=== PATIENT | male | born 1940 | race Caucasian/White ===

== ENCOUNTER 2022-12-30 13:34 | Outpatient (AMB) | payer OTHER, SELFPAY ==
--- NOTE | 2022-12-30 13:37 | HO.NEPHOV_ITS ---
HPI HPI Comments History of Present Illness Details I had the privilege of seeing Khoa in follow-up of his chronic kidney disease. He has had heart failure with reduced ejection fraction in the past along with low-flow state from aortic stenosis causing Kg I needing dialysis. His renal functions had recovered. He underwent TAVR. He does not have any weight gain, shortness of breath, edema, paroxysmal nocturnal dyspnea, orthopnea or syncope. He had a recent ECHO which showed mildly dilated left ventricle with normal LV thickness.Bioprosthetic valve in the aortic position TAVR .Mean gradient is 10 mmHg. Right ventricular systolic function is reduced. A pacer/ICD wire is seen in the right ventricle. His recent serum creatinine is 2. Blood sugars are well controlled. He avoids nonsteroidal anti-inflammatory medications. He has not had any new medications lately. He weighs himself every day. He is far up closely by his elastic attacher coverstitch Dr. Coker with whom he has an appointment in a month. [facility] Medical History (Updated 12/30/22 @ 14:59 by Janusz Davis MD) Anemia Type 2 diabetes mellitus Surgical History (Updated 12/30/22 @ 13:47 by Phoebe Rader MA) S/P TAVR (transcatheter aortic valve replacement) Social History (Updated 12/30/22 @ 13:48 by Pohebe Rader MA) Alcohol intake: former Patient Tobacco Use Status: Former Tobacco user Vital Signs 12/30/22 13:49 Height 6 ft Weight 240 lb 8 oz BMI 32.6 BP 124/70 Blood Pressure Location Lt brachial Position Sitting Pulse 80 Pulse Source Pulse Oximeter Pulse Oximetry (%) 96 Physical Exam Vital Signs: Last Vital Signs Pulse 80 12/30/22 13:49 BP 124/70 12/30/22 13:49 Pulse Ox 96 12/30/22 13:49 BMI result Body Mass Index 32.6 Const General: comfortable and no acute distress Orientation/consciousness: patient oriented x3 HEENT Head: Yes normocephalic Mouth: Normal oral and palatal mucosa present Eyes EOM: EOMs intact bilaterally Neck Neck: Yes supple Resp Auscultation: clear to auscultation bilaterally Cardio Jugular venous distension: no JVD Rate: regular rate Heart sounds: Murmur heart sound present GI Palpation (GI): Soft to palpation Auscultation: normal bowel sounds General: Yes no CVA tenderness Back/Spine/Pelvis Back: no CVA tenderness Skin General skin exam: no rashes or lesions noted Neuro General: patient oriented x3 and moves all extremities Extrem General: Yes no pedal edema Assessment & Plan Assessment & Plan (1) CKD (chronic kidney disease) stage 3, GFR 30-59 ml/min: Code(s): N18.30 - Chronic kidney disease, stage 3 unspecified Qualifiers: Chronic kidney disease stage 3 subtype: stage 3b (GFR 30-44) Qualified Code(s): N18.32 - Chronic kidney disease, stage 3b (2) Hypertension: Code(s): I10 - Essential (primary) hypertension Qualifiers: Hypertension type: primary hypertension Qualified Code(s): I10 - Essential (primary) hypertension (3) Cardiomyopathy: Code(s): I42.9 - Cardiomyopathy, unspecified Qualifiers: Cardiomyopathy type: ischemic Qualified Code(s): I25.5 - Ischemic cardiomyopathy Plan hKoa is an 82 year old male with PMH significant for hypertension, dyslipidemia, left parietal stroke 2010, diabetes mellitus type 2, CAD s/p CABG x 2, 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 His renal functions are pretty stable. His last serum creatinine is 2. Electrolytes are acceptable. Volume status is optimal on current dose of diuretics. I started him on Farxiga 2.5 mg once daily. He is going to have repeat blood work done in a month. His blood sugars are dropping he will reduce insulin. He is seeing his elastic attacher coverstitch Dr. Saloni Coker next month. If he is going to be initiated on Entresto, we need to follow his blood chemistry and kidney functions very closely. I did not make any other medications today. All questions answered. Blood work ordered. Time spent for retrieval of data, documentation and patient encounter 55 minutes. Orders: Orders Creatinine Today N18.30 - Chronic kidney disease, stage 3 unspecified Electrolytes Today N18.30 - Chronic kidney disease, stage 3 unspecified Blood Urea Nitrogen Today N18.30 - Chronic kidney disease, stage 3 unspecified Medications: New dapagliflozin propanediol (Farxiga) 2.5 mg (1/2 x 5 mg) PO DAILY 30 days 15 tabs 6RF Coding Level of Care Code Est Pt Level 5 (55968) Diagnoses Stage 3b chronic kidney disease N18.32 Chronic kidney disease stage 3 subtype: stage 3b (GFR 30-44) Primary hypertension I10 Hypertension type: primary hypertension Ischemic cardiomyopathy I25.5 Cardiomyopathy type: ischemic
[2022-12-30 13:49] VITALS: BP 124/70; PULSE 80; O2SAT 96; BMI 32.6
== END 2022-12-30 14:37 | disposition home or self-care (01) ==
PROVIDERS: Visit Provider Internal Medicine Nephrology
DX: N18.32 Chronic kidney disease, stage 3b (principal); I12.9 Hypertensive chronic kidney disease with stage 1 through stage 4 chronic kidney disease, or unspecified chronic kidney disease; I25.5 Ischemic cardiomyopathy
CPT/HCPCS: 99215

== ENCOUNTER → 2022-12-30 13:34 | Outpatient (BNVA) | payer OTHER, MEDICARE, SELFPAY | PROVIDERS: Visit Provider Internal Medicine Nephrology ==

== ENCOUNTER 2023-03-04 13:17 | Outpatient (AMB) | payer OTHER, MEDICARE, SELFPAY ==
[2023-03-04 13:18] VITALS: BP 130/62; PULSE 80; O2SAT 94; BMI 32.1
--- NOTE | 2023-03-04 13:18 | HO.NEPHOV_ITS ---
HPI HPI Comments History of Present Illness Details I had the privilege of seeing Khoa in follow-up of his chronic kidney disease. He has had heart failure with reduced ejection fraction in the past along with low-flow state from aortic stenosis causing Kg needing dialysis. His renal functions had recovered and is stable. He underwent TAVR. He does not have any weight gain, shortness of breath, edema, paroxysmal nocturnal dyspnea, orthopnea or syncope. He had a recent ECHO which showed mildly dilated left ventricle with normal LV thickness.Bioprosthetic valve in the aortic position TAVR .Mean gradient is 10 mmHg. Right ventricular systolic function is reduced. A pacer/ICD wire is seen in the right ventricle. His recent serum creatinine is 2.2. Blood sugars are well controlled. He avoids nonsteroidal anti-inflammatory medications. He has not had any new medications lately. He weighs himself every day. He is followed up closely by his prick stitcher Dr. Coker. 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) Social History Alcohol intake: former Patient Tobacco Use Status: Former Tobacco user Vital Signs 03/04/23 13:18 Height 6 ft Weight 237 lb BMI 32.1 BP 130/62 Blood Pressure Location Lt brachial Position Sitting Pulse 80 Pulse Oximetry (%) 94 Oxygen Delivery Method Room Air Physical Exam Vital Signs: Last Vital Signs Pulse 80 03/04/23 13:18 BP 130/62 03/04/23 13:18 Pulse Ox 94 03/04/23 13:18 Oxygen Delivery Method Room Air 03/04/23 13:18 BMI result Body Mass Index 32.1 Const General: comfortable and no acute distress Orientation/consciousness: patient oriented x3 HEENT Head: Yes normocephalic Mouth: Normal oral and palatal mucosa present Eyes EOM: EOMs intact bilaterally Neck Neck: Yes supple Resp Auscultation: clear to auscultation bilaterally Cardio Jugular venous distension: no JVD Rate: regular rate GI Palpation (GI): Soft to palpation Auscultation: normal bowel sounds General: Yes no CVA tenderness Back/Spine/Pelvis Back: no CVA tenderness Skin General skin exam: no rashes or lesions noted Neuro General: patient oriented x3 and moves all extremities Extrem General: Yes no pedal edema Assessment & Plan Assessment & Plan (1) CKD (chronic kidney disease) stage 3, GFR 30-59 ml/min: Code(s): N18.30 - Chronic kidney disease, stage 3 unspecified Qualifiers: Chronic kidney disease stage 3 subtype: stage 3b (GFR 30-44) Qualified Code(s): N18.32 - Chronic kidney disease, stage 3b (2) Hypertension: Code(s): I10 - Essential (primary) hypertension Qualifiers: Hypertension type: primary hypertension Qualified Code(s): I10 - Essential (primary) hypertension (3) Cardiomyopathy: Code(s): I42.9 - Cardiomyopathy, unspecified Qualifiers: Cardiomyopathy type: ischemic Qualified Code(s): I25.5 - Ischemic cardiomyopathy Plan Khoa is an 82 year old male with PMH significant for hypertension, dyslipidemia, left parietal stroke 2010, diabetes mellitus type 2, CAD s/p CABG x 2, 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 His renal functions are pretty stable. His last serum creatinine is 2.2. Electrolytes are acceptable. Volume status is optimal on current dose of diuretics. I started him on Farxiga 2.5 mg once daily at the last visit. He follows up with his prick stitcher Dr. Saloni Coker. If he is going to be initiated on Entresto, we need to follow his blood chemistry and kidney functions very closely. I did not make any other medications today. All questions answered. Blood work ordered. Orders: Orders Creatinine Today I10 - Essential (primary) hypertension, I42.9 - Cardiomyopathy, unspecified, N18.30 - Chronic kidney disease, stage 3 unspecified Electrolytes Today I10 - Essential (primary) hypertension, I42.9 - Cardiomyopathy, unspecified, N18.30 - Chronic kidney disease, stage 3 unspecified Blood Urea Nitrogen Today I10 - Essential (primary) hypertension, I42.9 - Cardiomyopathy, unspecified, N18.30 - Chronic kidney disease, stage 3 unspecified Medications: Changed From dapagliflozin propanediol (Farxiga) 2.5 mg (1/2 x 5 mg) PO DAILY 30 days 15 tabs 6RF To dapagliflozin propanediol (Farxiga) 2.5 mg (1/2 x 5 mg) PO DAILY 45 tabs 6RF 90 days Coding Level of Care Code Est Pt Level 4 (49602) Diagnoses Stage 3b chronic kidney disease N18.32 Chronic kidney disease stage 3 subtype: stage 3b (GFR 30-44) Primary hypertension I10 Hypertension type: primary hypertension Ischemic cardiomyopathy I25.5 Cardiomyopathy type: ischemic Results Reviewed Nephrology Results: No Data to Display
== END 2023-03-04 13:45 | disposition home or self-care (01) ==
PROVIDERS: PCP Internal Medicine; Visit Provider Internal Medicine Nephrology
DX: N18.32 Chronic kidney disease, stage 3b (principal); I10 Essential (primary) hypertension; I25.5 Ischemic cardiomyopathy
CPT/HCPCS: 99214

== ENCOUNTER → 2023-03-04 13:17 | Outpatient (BNVA) | payer OTHER, MEDICARE, SELFPAY | PROVIDERS: PCP Internal Medicine; Visit Provider Internal Medicine Nephrology ==

== ENCOUNTER 2023-05-28 12:56 | Outpatient (REF) | payer OTHER, MEDICARE, SELFPAY ==
[2023-05-28 16:52] LABS: PLT CLUMP 1; SCAN SMEAR FLAG 1
[2023-05-28 17:16] LABS: Basophils Absolute Auto 0.1 X10*3/uL (0.0-0.2); Basophils Percent Auto 0.8 % (0-2); Eosinophils Absolute Auto 0.2 X10*3/uL (0.0-0.4); Eosinophils Percent Auto 3.4 % (0-4); Hematocrit 45.5 % (42.0-52.0); Imm Gran Abs Auto 0.01 X10*3/uL (0.00-0.03); Imm Gran Pct Auto 0.2 % (0.0-0.4); Lymphocytes Absolute Auto 0.6 X10*3/uL (1.2-4.9); Lymphocytes Percent Auto 10.3 % (20-40); MANUAL DIFF FLAG NO; Mean Corpuscular Hemoglobin 29.4 pg (27.0-33.0); Mean Platelet Volume 10.5 fL (9.4-12.4); Monocytes Absolute Auto 0.7 X10*3/uL (0.1-1.2); Monocytes Percent Auto 10.7 % (2-11); Neutrophils Absolute Auto 4.6 x10*3/uL (2.0-8.3); Neutrophils Percent Auto 74.6 % (45-73); Platelet Count 122 X10*3/uL (160-400); Red Blood Count 5.11 X10*6/uL (4.60-5.80); White Blood Count 6.1 X10*3/uL (4.8-10.8)
[2023-05-28 17:21] LABS: Anion Gap 13 (12-20); Blood Urea Nitrogen 43 mg/dL (9-16); Calcium 8.6 mg/dL (8.4-10.2); Carbon Dioxide 33 mmol/L (22-29); Chloride 97 mmol/L (96-108); Estimated Glomerular Filt Rate 29; Sodium 139 mmol/L (135-145)
[2023-05-28 17:39] LABS: Vitamin D 25-OH Total 53.2 ng/mL (>30)
== END 2023-05-28 12:57 | disposition home or self-care (01) ==
LOC: HO.HKASLDS 12:56
PROVIDERS: Visit Provider Internal Medicine Nephrology
DX: N18.30 Chronic kidney disease, stage 3 unspecified (principal)
CPT/HCPCS: 36415; 80051; 82306; 82310; 82565; 84520; 85025

== ENCOUNTER 2023-06-03 13:24 | Outpatient (AMB) | payer OTHER, SELFPAY ==
--- NOTE | 2023-06-03 13:33 | HO.NEPHOV_ITS ---
HPI HPI Comments History of Present Illness Details I had the privilege of seeing Khoa in follow-up of his chronic kidney disease. He has had heart failure with reduced ejection fraction in the past along with low-flow state from aortic stenosis causing Kg needing dialysis. His renal functions had recovered and is stable. He underwent TAVR. He does not have any weight gain, shortness of breath, edema, paroxysmal nocturnal dyspnea, orthopnea or syncope. He had a recent ECHO which showed mildly dilated left ventricle with normal LV thickness.Bioprosthetic valve in the aortic position TAVR .Mean gradient is 10 mmHg. Right ventricular systolic function is reduced. A pacer/ICD wire is seen in the right ventricle. His recent serum creatinine is close to baseline. Blood sugars are well controlled. He avoids nonsteroidal anti-inflammatory medications. He has not had any new medications lately. He weighs himself every day. He is followed up closely by his product manager medical device Dr. Coker. 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) Social History Alcohol intake: former Patient Tobacco Use Status: Former Tobacco user Vital Signs 06/03/23 13:34 Height 6 ft Weight 242 lb BMI 32.8 BP 118/80 Blood Pressure Location Lt brachial Position Sitting Pulse 80 Pulse Source Pulse Oximeter Pulse Oximetry (%) 92 Oxygen Delivery Method Room Air Physical Exam Vital Signs: Last Vital Signs Pulse 80 06/03/23 13:34 BP 118/80 06/03/23 13:34 Pulse Ox 92 06/03/23 13:34 Oxygen Delivery Method Room Air 06/03/23 13:34 BMI result Body Mass Index 32.8 Const General: comfortable and no acute distress Orientation/consciousness: patient oriented x3 HEENT Head: Yes normocephalic Mouth: Normal oral and palatal mucosa present Eyes EOM: EOMs intact bilaterally Neck Neck: Yes supple Resp Auscultation: clear to auscultation bilaterally Cardio Jugular venous distension: no JVD Rate: regular rate GI Palpation (GI): Soft to palpation Auscultation: normal bowel sounds General: Yes no CVA tenderness Back/Spine/Pelvis Back: no CVA tenderness Skin General skin exam: no rashes or lesions noted Neuro General: patient oriented x3 and moves all extremities Extrem General: Yes no pedal edema Assessment & Plan Assessment & Plan (1) CKD (chronic kidney disease) stage 3, GFR 30-59 ml/min: Code(s): N18.30 - Chronic kidney disease, stage 3 unspecified Qualifiers: Chronic kidney disease stage 3 subtype: stage 3b (GFR 30-44) Qualified Code(s): N18.32 - Chronic kidney disease, stage 3b (2) Hypertension: Code(s): I10 - Essential (primary) hypertension Qualifiers: Hypertension type: primary hypertension Qualified Code(s): I10 - Essential (primary) hypertension (3) Cardiomyopathy: Code(s): I42.9 - Cardiomyopathy, unspecified Qualifiers: Cardiomyopathy type: ischemic Qualified Code(s): I25.5 - Ischemic cardiomyopathy Plan Khoa is an 82 year old male with PMH significant for hypertension, dyslipidemia, left parietal stroke 2010, diabetes mellitus type 2, CAD s/p CABG x 2, 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 His renal functions are pretty stable. His last serum creatinine is 2.2. Electrolytes are acceptable. Volume status is optimal on current dose of diuretics. I started him on Farxiga 2.5 mg once daily at the last visit. He follows up with his product manager medical device Dr. Saloni Coker. If he is going to be initiated on Entresto, we need to follow his blood chemistry and kidney functions very closely. I did not make any other medications today. All questions answered. Blood work ordered. Orders: Orders Blood Urea Nitrogen Today I10 - Essential (primary) hypertension, I25.5 - Ischemic cardiomyopathy, N18.32 - Chronic kidney disease, stage 3b Electrolytes Today I10 - Essential (primary) hypertension, I25.5 - Ischemic cardiomyopathy, N18.32 - Chronic kidney disease, stage 3b Creatinine Today I10 - Essential (primary) hypertension, I25.5 - Ischemic cardiomyopathy, N18.32 - Chronic kidney disease, stage 3b Coding Level of Care Code Est Pt Level 4 (70368) Diagnoses Stage 3b chronic kidney disease N18.32 Chronic kidney disease stage 3 subtype: stage 3b (GFR 30-44) Primary hypertension I10 Hypertension type: primary hypertension Ischemic cardiomyopathy I25.5 Cardiomyopathy type: ischemic Results Reviewed Nephrology Results: Hgb 15.0 g/dl (14.0-18.0) 05/28/23 WBC 6.1 X10*3/uL (4.8-10.8) 05/28/23 Plt Count 122 X10*3/uL (160-400) L 05/28/23 Sodium 139 mmol/L (135-145) 05/28/23 Potassium 4.0 mmol/L (3.3-5.1) 05/28/23 Chloride 97 mmol/L (96-108) 05/28/23 Carbon Dioxide 33 mmol/L (22-29) H 05/28/23 BUN 43 mg/dL (9-16) H 05/28/23 Creatinine 2.18 mg/dL (0.5-1.4) H 05/28/23 Calcium 8.6 mg/dL (8.4-10.2) 05/28/23
[2023-06-03 13:34] VITALS: BP 118/80; PULSE 80; O2SAT 92; BMI 32.8
== END 2023-06-03 14:01 | disposition home or self-care (01) ==
PROVIDERS: PCP Internal Medicine; Visit Provider Internal Medicine Nephrology
DX: N18.32 Chronic kidney disease, stage 3b (principal); I10 Essential (primary) hypertension; I25.5 Ischemic cardiomyopathy
CPT/HCPCS: 99214

== ENCOUNTER → 2023-06-03 13:24 | Outpatient (BNVA) | payer OTHER, MEDICARE, SELFPAY | PROVIDERS: PCP Internal Medicine; Visit Provider Internal Medicine Nephrology ==

== ENCOUNTER 2023-09-18 13:17 | Outpatient (REF) | payer OTHER, SELFPAY ==
[2023-09-18 18:14] LABS: Anion Gap 13 (12-20); Blood Urea Nitrogen 39 mg/dL (9-16); Carbon Dioxide 32 mmol/L (22-29); Chloride 99 mmol/L (96-108); Estimated Glomerular Filt Rate 30; Sodium 140 mmol/L (135-145)
== END 2023-09-18 13:18 | disposition home or self-care (01) ==
LOC: HO.HKASLDS 13:17
PROVIDERS: Visit Provider Internal Medicine Nephrology
DX: I25.5 Ischemic cardiomyopathy (principal); I10 Essential (primary) hypertension; N18.30 Chronic kidney disease, stage 3 unspecified; N18.32 Chronic kidney disease, stage 3b
CPT/HCPCS: 36415; 80051; 82565; 84520

== ENCOUNTER 2023-09-25 13:17 | Outpatient (AMB) | payer OTHER, SELFPAY ==
--- NOTE | 2023-09-25 13:23 | HO.NEPHOV ---
Vital Signs 09/25/23 13:24 Height 6 ft Weight 237 lb 2 oz BMI 32.2 BP 122/60 Blood Pressure Location Lt brachial Position Sitting Pulse 80 Pulse Source Pulse Oximeter Pulse Oximetry (%) 95 Oxygen Delivery Method Room Air Intake Visit Reasons: 3 mon follow up/ Conf Bag Machine Operator Required: No Accompanied by: Self / Same As Patient Allergies iodixanol Allergy (Verified 09/25/23 13:26) Unknown lorazepam Allergy (Verified 09/25/23 13:26) Unknown morphine Allergy (Verified 09/25/23 13:26) Unknown HPI Comments Details: I had the privilege of seeing Khoa in follow-up of his chronic kidney disease. He has had heart failure with reduced ejection fraction in the past along with low-flow state from aortic stenosis causing Kg needing dialysis. His renal functions had recovered and is stable. He underwent TAVR. He does not have any weight gain, shortness of breath, edema, paroxysmal nocturnal dyspnea, orthopnea or syncope. He had a recent ECHO which showed mildly dilated left ventricle with normal LV thickness.Bioprosthetic valve in the aortic position TAVR .Mean gradient is 10 mmHg. Right ventricular systolic function is reduced. A pacer/ICD wire is seen in the right ventricle. His recent serum creatinine is close to baseline. Blood sugars are well controlled. He avoids nonsteroidal anti-inflammatory medications. He has not had any new medications lately. He weighs himself every day. He is followed up closely by his engraver optical frames Dr. Coker. 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) Social History Alcohol intake: former Patient Tobacco Use Status: Former Tobacco user Review of Systems Const All systems reviewed & are unremarkable except as noted in HPI and below Physical Exam Vital Signs: Last Vital Signs Pulse 80 09/25/23 13:24 BP 122/60 09/25/23 13:24 Pulse Ox 95 09/25/23 13:24 Oxygen Delivery Method Room Air 09/25/23 13:24 BMI result Body Mass Index 32.2 Const General: comfortable and no acute distress Orientation/consciousness: patient oriented x3 HEENT Head: Yes normocephalic Mouth: Normal oral and palatal mucosa present Eyes EOM: EOMs intact bilaterally Neck Neck: Yes supple Resp Auscultation: clear to auscultation bilaterally Cardio Jugular venous distension: no JVD Rate: regular rate GI Palpation (GI): Soft to palpation Auscultation: normal bowel sounds General: Yes no CVA tenderness Back/Spine/Pelvis Back: no CVA tenderness Skin General skin exam: no rashes or lesions noted Neuro General: patient oriented x3 and moves all extremities Extrem General: Yes no pedal edema Results Reviewed Nephrology Results: Hgb 15.0 g/dl (14.0-18.0) 05/28/23 WBC 6.1 X10*3/uL (4.8-10.8) 05/28/23 Plt Count 122 X10*3/uL (160-400) L 05/28/23 Sodium 140 mmol/L (135-145) 09/18/23 Potassium 4.0 mmol/L (3.3-5.1) 09/18/23 Chloride 99 mmol/L (96-108) 09/18/23 Carbon Dioxide 32 mmol/L (22-29) H 09/18/23 BUN 39 mg/dL (9-16) H 09/18/23 Creatinine 2.11 mg/dL (0.5-1.4) H 09/18/23 Calcium 8.6 mg/dL (8.4-10.2) 05/28/23 Assessment & Plan Assessment & Plan (1) CKD (chronic kidney disease) stage 3, GFR 30-59 ml/min: Code(s): N18.30 - Chronic kidney disease, stage 3 unspecified Category: Medical Qualifiers: Chronic kidney disease stage 3 subtype: stage 3b (GFR 30-44) Qualified Code(s): N18.32 - Chronic kidney disease, stage 3b (2) Hypertension: Code(s): I10 - Essential (primary) hypertension Category: Medical Qualifiers: Hypertension type: primary hypertension Qualified Code(s): I10 - Essential (primary) hypertension (3) Cardiomyopathy: Code(s): I42.9 - Cardiomyopathy, unspecified Category: Medical Qualifiers: Cardiomyopathy type: ischemic Qualified Code(s): I25.5 - Ischemic cardiomyopathy Plan Khoa is an 82 year old male with PMH significant for hypertension, dyslipidemia, left parietal stroke 2010, diabetes mellitus type 2, CAD s/p CABG x 2, 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 His renal functions are pretty stable. His last serum creatinine is 2.2. Electrolytes are acceptable. Volume status is optimal on current dose of diuretics. He is on Farxiga 2.5 mg once daily . He follows up with his engraver optical frames Dr. Saloni Coker. He is on Entresto as well. I did not make any other medications today. All questions answered. Blood work ordered. Orders: Orders Blood Urea Nitrogen Today I10 - Essential (primary) hypertension, I25.5 - Ischemic cardiomyopathy, N18.32 - Chronic kidney disease, stage 3b Creatinine Today I10 - Essential (primary) hypertension, I25.5 - Ischemic cardiomyopathy, N18.32 - Chronic kidney disease, stage 3b Electrolytes Today I10 - Essential (primary) hypertension, I25.5 - Ischemic cardiomyopathy, N18.32 - Chronic kidney disease, stage 3b Calcium Today I10 - Essential (primary) hypertension, I25.5 - Ischemic cardiomyopathy, N18.32 - Chronic kidney disease, stage 3b Coding Level of Care Code Est Pt Level 4 (39877) Diagnoses Stage 3b chronic kidney disease N18.32 Chronic kidney disease stage 3 subtype: stage 3b (GFR 30-44) Primary hypertension I10 Hypertension type: primary hypertension Ischemic cardiomyopathy I25.5 Cardiomyopathy type: ischemic
[2023-09-25 13:24] VITALS: BP 122/60; PULSE 80; O2SAT 95; BMI 32.2
== END 2023-09-25 13:43 | disposition home or self-care (01) ==
PROVIDERS: PCP Internal Medicine; Visit Provider Internal Medicine Nephrology
DX: N18.32 Chronic kidney disease, stage 3b (principal); I10 Essential (primary) hypertension; I25.5 Ischemic cardiomyopathy
CPT/HCPCS: 99214

== ENCOUNTER → 2023-09-25 13:17 | Outpatient (BNVA) | payer OTHER, MEDICARE, SELFPAY | PROVIDERS: PCP Internal Medicine; Visit Provider Internal Medicine Nephrology ==

== ENCOUNTER 2024-01-14 12:32 | Outpatient (REF) | payer OTHER, SELFPAY ==
[2024-01-14 16:37] LABS: Anion Gap 14 (12-20); Blood Urea Nitrogen 39 mg/dL (9-16); Calcium 8.7 mg/dL (8.4-10.2); Carbon Dioxide 34 mmol/L (22-29); Chloride 96 mmol/L (96-108); Estimated Glomerular Filt Rate 27; Potassium 4.4 mmol/L (3.3-5.1); Sodium 140 mmol/L (135-145)
== END 2024-01-14 12:33 | disposition home or self-care (01) ==
LOC: HO.HMGCLDS 12:32
PROVIDERS: PCP Internal Medicine; Visit Provider Internal Medicine Nephrology
DX: I25.5 Ischemic cardiomyopathy (principal); I42.9 Cardiomyopathy, unspecified; I10 Essential (primary) hypertension; N18.30 Chronic kidney disease, stage 3 unspecified; N18.32 Chronic kidney disease, stage 3b
CPT/HCPCS: 36415; 80051; 82310; 82565; 84520

== ENCOUNTER 2024-01-22 13:08 | Outpatient (AMB) | payer OTHER, SELFPAY ==
--- NOTE | 2024-01-22 13:11 | HO.NEPHOV ---
Vital Signs 01/22/24 13:25 Height 6 ft Weight 242 lb 6 oz BMI 32.9 BP 126/72 Blood Pressure Location Lt brachial Position Sitting Pulse 81 Pulse Source Pulse Oximeter Pulse Oximetry (%) 95 Oxygen Delivery Method Room Air Intake Visit Reasons: 4 mon follow up-Conf Cryptologic Technician Required: No Accompanied by: Self / Same As Patient Allergies iodixanol Allergy (Verified 01/22/24 13:24) Unknown lorazepam Allergy (Verified 01/22/24 13:24) Unknown morphine Allergy (Verified 01/22/24 13:24) Unknown HPI Comments Details: Khoa was seen in follow-up of his chronic kidney disease. He has H/O heart failure with reduced ejection fraction in the past along with low-flow state from aortic stenosis causing Migel needing dialysis. His renal functions had recovered and is stable. He underwent TAVR. He does not have any weight gain, shortness of breath, edema, paroxysmal nocturnal dyspnea, orthopnea or syncope. He had a recent ECHO which showed mildly dilated left ventricle with normal LV thickness.Bioprosthetic valve in the aortic position TAVR .Mean gradient is 10 mmHg. Right ventricular systolic function is reduced. A pacer/ICD wire is seen in the right ventricle. His recent serum creatinine is close to baseline. His blood sugars are well controlled. He avoids nonsteroidal anti-inflammatory medications. He has not had any new medications lately. He weighs himself every day. He is followed up closely by his retail cosmetics sales counter manager Dr. Coker. He is enquiring about Watch man device. He is going to have his pacemaker battery changed next week. 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) Social History Alcohol intake: former Patient Tobacco Use Status: Former Tobacco user Review of Systems Const All systems reviewed & are unremarkable except as noted in HPI and below Physical Exam Vital Signs: Last Vital Signs Pulse 81 01/22/24 13:25 BP 126/72 01/22/24 13:25 Pulse Ox 95 01/22/24 13:25 Oxygen Delivery Method Room Air 01/22/24 13:25 BMI result Body Mass Index 32.9 Const General: comfortable and no acute distress Orientation/consciousness: patient oriented x3 HEENT Head: Yes normocephalic Mouth: Normal oral and palatal mucosa present Eyes EOM: EOMs intact bilaterally Neck Neck: Yes supple Resp Auscultation: clear to auscultation bilaterally Cardio Jugular venous distension: no JVD Rate: regular rate GI Palpation (GI): Soft to palpation Auscultation: normal bowel sounds General: Yes no CVA tenderness Back/Spine/Pelvis Back: no CVA tenderness Skin General skin exam: no rashes or lesions noted Neuro General: patient oriented x3 and moves all extremities Extrem General: Yes no pedal edema Results Reviewed Nephrology Results: Hgb 15.0 g/dl (14.0-18.0) 05/28/23 WBC 6.1 X10*3/uL (4.8-10.8) 05/28/23 Plt Count 122 X10*3/uL (160-400) L 05/28/23 Sodium 140 mmol/L (135-145) 01/14/24 Potassium 4.4 mmol/L (3.3-5.1) 01/14/24 Chloride 96 mmol/L (96-108) 01/14/24 Carbon Dioxide 34 mmol/L (22-29) H 01/14/24 BUN 39 mg/dL (9-16) H 01/14/24 Creatinine 2.31 mg/dL (0.5-1.4) H 01/14/24 Calcium 8.7 mg/dL (8.4-10.2) 01/14/24 Assessment & Plan Assessment & Plan (1) CKD (chronic kidney disease) stage 3, GFR 30-59 ml/min: Code(s): N18.30 - Chronic kidney disease, stage 3 unspecified Category: Medical Qualifiers: Chronic kidney disease stage 3 subtype: stage 3b (GFR 30-44) Qualified Code(s): N18.32 - Chronic kidney disease, stage 3b (2) Hypertension: Code(s): I10 - Essential (primary) hypertension Category: Medical Qualifiers: Hypertension type: primary hypertension Qualified Code(s): I10 - Essential (primary) hypertension (3) Cardiomyopathy: Code(s): I42.9 - Cardiomyopathy, unspecified Category: Medical Qualifiers: Cardiomyopathy type: ischemic Qualified Code(s): I25.5 - Ischemic cardiomyopathy Plan Khoa is an 82 year old male with PMH significant for hypertension, dyslipidemia, left parietal stroke 2010, diabetes mellitus type 2, CAD s/p CABG x 2, 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 His renal functions are pretty stable. His last serum creatinine is close to baseline. Electrolytes are acceptable. Volume status is optimal on current dose of diuretics. He is on Farxiga 2.5 mg once daily . He follows up with his retail cosmetics sales counter manager Dr. Saloni Coker. He is on Entresto as well. I did not make any other medications today. All questions answered. Blood work ordered. Orders: Orders Parathyroid Hormone Intact 4 Months I10 - Essential (primary) hypertension, I25.5 - Ischemic cardiomyopathy, N18.32 - Chronic kidney disease, stage 3b Calcium 4 Months I10 - Essential (primary) hypertension, I25.5 - Ischemic cardiomyopathy, N18.32 - Chronic kidney disease, stage 3b Creatinine 4 Months I10 - Essential (primary) hypertension, I25.5 - Ischemic cardiomyopathy, N18.32 - Chronic kidney disease, stage 3b Vitamin D 25-OH Total 4 Months I10 - Essential (primary) hypertension, I25.5 - Ischemic cardiomyopathy, N18.32 - Chronic kidney disease, stage 3b Phosphorus 4 Months I10 - Essential (primary) hypertension, I25.5 - Ischemic cardiomyopathy, N18.32 - Chronic kidney disease, stage 3b Electrolytes 4 Months I10 - Essential (primary) hypertension, I25.5 - Ischemic cardiomyopathy, N18.32 - Chronic kidney disease, stage 3b Blood Urea Nitrogen 4 Months I10 - Essential (primary) hypertension, I25.5 - Ischemic cardiomyopathy, N18.32 - Chronic kidney disease, stage 3b Complete Blood Count Auto Diff 4 Months I10 - Essential (primary) hypertension, I25.5 - Ischemic cardiomyopathy, N18.32 - Chronic kidney disease, stage 3b Coding Level of Care Code Est Pt Level 4 (01686) Diagnoses Stage 3b chronic kidney disease N18.32 Chronic kidney disease stage 3 subtype: stage 3b (GFR 30-44) Primary hypertension I10 Hypertension type: primary hypertension Ischemic cardiomyopathy I25.5 Cardiomyopathy type: ischemic
[2024-01-22 13:25] VITALS: BP 126/72; PULSE 81; O2SAT 95; BMI 32.9
== END 2024-01-22 13:47 | disposition home or self-care (01) ==
PROVIDERS: PCP Internal Medicine; Visit Provider Internal Medicine Nephrology
DX: N18.32 Chronic kidney disease, stage 3b (principal); I10 Essential (primary) hypertension; I25.5 Ischemic cardiomyopathy
CPT/HCPCS: 99214

== ENCOUNTER 2024-05-18 07:16 | Outpatient (REF) | payer OTHER, SELFPAY ==
--- OUTSIDE RECORDS SUMMARY | 2024-05-18 07:19 | XMS_ITS | Clinical Summary ---
Author Organization [facility] Address [address] [facility] [address] [place] [address] Phone Care Team Providers Care Guest Specialist Name Role Phone Abdirahman Tineo MD Primary Care Provider Unavai lable Allergies Active Allergy Reactions Criticality Noted Date Comments Iodixanol Other (see comments) 12/13/2021 Other reaction(s): severe hives Lorazepam Other (see comments) 12/13/2021 Other reaction(s): i go mental Morphine Nausea,Other (see comments) 12/13/2021 Medications atorvastatin (LIPITOR) 80 MG tablet Take 80 mg by mouth 1 (one) time each day Active aspirin (ST SERAFIN) 81 MG EC tablet Take 81 mg by mouth 1 (one) time each day Active torsemide (DEMADEX) 20 MG tablet Take 20 mg by mouth in the morning and 20 mg in the evening. Active insulin glargine (LANTUS) 100 UNIT/ML injection Inject 22 Units under the skin every night Active acetaminophen (TYLENOL) 325 MG tablet Take by mouth every 6 (six) hours if needed for mild pain Active tamsulosin (FLOMAX) 0.4 MG 24 hr capsule Take 0.4 mg by mouth 1 (one) time each day Active traZODone (DESYREL) 50 MG tablet Take 50 mg by mouth at night if needed 3 Active Eliquis 2.5 MG tablet Take 2.5 mg by mouth 2 (two) times a day 3 Active Spiriva HandiHaler 18 MCG per inhalation capsule INHALE THE CONTENTS OF 1 CAPSULE VIA INHALATION DEVICE AT THE SAME TIME EVERY DAY 3 Active cholestyramine light (PREVALITE) 4 GM/DOSE powder 2 (two) times a day Active carvedilol (COREG) 6.25 MG tablet Take 6.25 mg by mouth in the morning and 6.25 mg in the evening. Take with meals. Active Active Problems Problem Noted Date Diagnosed Date Stage 3b chronic kidney disease 08/05/2022 Stage 3 chronic kidney disease, not otherwise sp ecified 04/23/2022 Hypertension 04/23/2022 Acute nontraumatic kidney injury 12/13/2021 Chronic kidney disease 12/13/2021 Congestive heart failure due to left ventricular systolic dysfunction 12/13/2021 Type 2 diabetes mellitus 12/13/2021 Acute on chronic systolic heart failure 10/05/19 Resolved Problems Problem Noted Date Diagnosed Date Resolved Date Benign prostatic hyperplasia 12/13/2021 12/13/2021 Chronic obstructive pulmonary disease 12/13/2021 12/13/2021 Ischemic heart disease 12/13/202112/13 Obese class I 12/13/2021 12/13/2021 Pleural effusion 12/13/2021 12/13/2021 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 12/14/19 Aortic valve stenosis 10/04/20212021 History of cerebrovascular accident 10/04/2021 12/13/2021 History of placement of sten t in coronary artery bypass graft 10/04/2021 12/13/2021 Immunizations Name Administration Dates Next Due Influenza, Unspecified 12/07/2021 Moderna SARS-COV-2 12/12/2020,2020, 021 Pneumococcal Conjugate 13-Valent 09/16/2015 Pneumococcal Polysaccharide 11/22/2017 Shingrix 05/24/2021,03/25/2021 Family History Medical History Relation Comments Diabetes Father Hypertension Father Hypertension Mother Relation Status Comments Father Mother Social History Tobacco Use Types Packs/Day Years Used Date Smoking Tobacco: Former Cigarettes Q uit: 11/07/1969 Smokeless Tobacco: Never Tobacco Cessation:Counseling Given: Not Answered Alcohol Use Standard Drinks/Week Comments Not Currently 0 (1 standard drink = 0.6 oz pur e alcohol) Sex and Gender Information Value Date Recorded Sex Assigned at Not on file Legal Sex Male 4:51 PM EST Gender Identity Not on file Sexual Orientation Not on file Last Filed Vital Signs Vital Sign Reading Time Taken Comments Blood Pressure 130/80 11/04/2022 3:28 PM EDT Pulse 80 11/04/2022 3:28 PM EDT Temperature - - Respiratory Rate - - Oxygen Saturation 96% 08/05/2022 2:03 PM EDT Inhaled Oxygen Concentration - - Weight 108 kg (237 lb 3.2 oz) 08/05/2022 2:03 PM EDT Height 182.9 cm (6') 08/05/2022 2:03 PM EDT Body Mass Index 32.17 08/05/2022 2:03 PM EDT Plan of Treatment Health Maintenance Due Date Last Done Comments Diabetes: Hemoglobin A1C 11/30/2021 Diabetes: Ophthalmology Exam 11/30/2021 Diabetes: Pedal Pulse Checked 11/30/2021 Diabetes: Sensory Foot Exam 11/30/2021 Diabetes: Visual Foot Exam 11/30/2021 Influenza Vaccine (#1) 2023 12/07/2021 Pneumococcal Vaccine: 65+ Years Completed 11/22/2017, 11/22/2017, 09/16/2015 Hepatitis B Vaccine Aged Out No longe r eligible based on patient's age to complete this topic Insurance [facility] Member Subscriber Plan / Payer (Ef fective 2021-Present) Name:Khoa Milner Relation to Subscriber:Self Name:MilnerKhoa higgins Payer ID:Not on file Type:Not on file Address: [place] [phone] Care Teams Guest Specialist Relationship Specialty Start Date End Date Abdirahman Tineo MD PCP - General 02/28/20
--- OUTSIDE RECORDS SUMMARY | 2024-05-18 07:19 | XMS_ITS | Clinical Summary ---
Author Organization [facility] Address [address] [place] [address] Care Team Providers Care Recreation Establishment Manager Name Role Phone Unavailable Primary Care Provider Unavailabl e Social History Tobacco Use Types Packs/Day Years Used Date Smoking Tobacco: Never Assessed Sex and Gender Information Value Date Recorded Sex Assigned at Not on file Legal Sex Male 1:58 AM EST Gender Identity Not on file Sexual Orientation Not on file Plan of Treatment Health Maintenance Due Date Last Done Comments DTaP,Tdap,and Td Vaccines (1 - Tdap) 1959 Pneumococcal Vaccine: 50+ Ye ars (1 of 2 - PCV) 1959 Zoster Vaccines (1 of 2) 1990 RSV Immunization Patients 60 + Years Old (1 - 1-dose 75+ series) 2015 Cholesterol Screening (Lipid Panel) 01/20/2022 Depression Screening 01/20/2022 Falls Risk Assessment 01/20/2022 Social Influencers of Health Screening 01/20/2022 COVID-19 Vaccine ( - 2023-2 5 season) 2023 Influenza Vaccine (#1) 2023 HIB Vaccines Aged Out No longer eligi ble based on patient's age to complete this topic HPV Vaccines Aged Out No longer eligi ble based on patient's age to complete this topic Hepatitis A Vaccines Aged Out No long er eligible based on patient's age to complete this topic Hepatitis B Vaccines Aged Out No long er eligible based on patient's age to complete this topic IPV Vaccines Aged Out No longer eligi ble based on patient's age to complete this topic MMR Vaccines Aged Out No longer eligi ble based on patient's age to complete this topic Meningococcal ACWY Vaccine Aged Out N o longer eligible based on patient's age to complete this topic Meningococcal B Vacine Aged Out No lo nger eligible based on patient's age to complete this topic RSV Immunization Patients Un best 20 months Aged Out No longer eligible b ased on patient's age to complete this topic Varicella Vaccines Aged Out No longer eligible based on patient's age to complete this topic
[2024-05-18 10:26] LABS: MANUAL DIFF FLAG NO
[2024-05-18 10:48] LABS: Basophils Percent Auto 0.8 % (0-2); Eosinophils Absolute Auto 0.2 X10*3/uL (0.0-0.4); Hemoglobin 15.8 g/dl (14.0-18.0); Imm Gran Abs Auto 0.03 X10*3/uL (0.00-0.03); Imm Gran Pct Auto 0.6 % (0.0-0.4); Lymphocytes Absolute Auto 0.7 X10*3/uL (1.2-4.9); Lymphocytes Percent Auto 13.9 % (20-40); Mean Corpuscular HGB Conc 32.2 g/dl (31.0-36.0); Mean Corpuscular Hemoglobin 29.9 pg (27.0-33.0); Mean Corpuscular Volume 92.6 fL (80.0-98.0); Mean Platelet Volume 10.6 fL (9.4-12.4); Monocytes Absolute Auto 0.4 X10*3/uL (0.1-1.2); Monocytes Percent Auto 8.3 % (2-11); Neutrophils Absolute Auto 3.9 x10*3/uL (2.0-8.3); Neutrophils Percent Auto 72.4 % (45-73); Platelet Count 130 X10*3/uL (160-400); Red Blood Count 5.29 X10*6/uL (4.60-5.80); White Blood Count 5.3 X10*3/uL (4.8-10.8)
[2024-05-18 11:26] LABS: Parathyroid Hormone Intact 146.6 pg/mL (8.7-77.1)
[2024-05-18 11:35] LABS: Anion Gap 9 (12-20); Blood Urea Nitrogen 44 mg/dL (9-16); Carbon Dioxide 35 mmol/L (22-29); Chloride 101 mmol/L (96-108); Estimated Glomerular Filt Rate 31; Phosphorus 3.5 mg/dL (2.7-4.5); Potassium 4.1 mmol/L (3.3-5.1); Sodium 141 mmol/L (135-145); Vitamin D 25-OH Total 52.1 ng/mL (>30)
== END 2024-05-18 07:17 | disposition home or self-care (01) ==
LOC: HO.HMGCLDS 07:16
PROVIDERS: PCP Internal Medicine; Visit Provider Internal Medicine Nephrology
DX: I12.9 Hypertensive chronic kidney disease with stage 1 through stage 4 chronic kidney disease, or unspecified chronic kidney disease (principal); I25.5 Ischemic cardiomyopathy; N18.32 Chronic kidney disease, stage 3b
CPT/HCPCS: 36415; 80051; 82306; 82310; 82565; 83970; 84100; 84520; 85025

== ENCOUNTER 2024-05-25 13:52 | Outpatient (AMB) | payer MEDICARE, SELFPAY ==
--- NOTE | 2024-05-25 13:57 | HO.NEPHOV_ITS ---
Vital Signs 05/25/24 14:00 Height 6 ft Weight 242 lb 4 oz BMI 32.9 BP 114/60 Blood Pressure Location Rt brachial Position Sitting Pulse 61 Pulse Source Pulse Oximeter Pulse Oximetry (%) 95 Oxygen Delivery Method Room Air Intake Visit Reasons: 4 mon follow up-[facility] Math And Science Instructor Required: No Accompanied by: Self / Same As Patient Allergies iodixanol Allergy (Verified 05/25/24 13:59) Unknown lorazepam Allergy (Verified 05/25/24 13:59) Unknown morphine Allergy (Verified 05/25/24 13:59) Unknown HPI Comments Details: Khoa was seen in follow-up of his chronic kidney disease. He has H/O heart failure with reduced ejection fraction in the past along with low-flow state fr om aortic stenosis causing Migel needing dialysis. His renal functions had recovered and is stable. He underwent TAVR. He does not have any weight gain, shortness of breath, edema, paroxysmal nocturnal dyspnea, orthopnea or syncope. He had a recent ECHO which showed mildly dilated left ventricle with normal LV thickness.Bioprosthetic valve in the aortic position TAVR .Mean gradient is 10 mmHg. Right ventricular systolic function is reduced. A pacer/ICD wire is seen in the right ventricle. His recent serum creatinine is close to baseline. His blood sugars are well controlled. He avoids nonsteroidal anti-inflammatory medications. He has not had any new medications lately. He weighs himself every day. He is followed up closely by his auto phone installer Dr. Coker. He doesnt want to do Watch man device now. He recently had a TIA when Elquis was held. He had his pacemaker battery changed . 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) Social History Alcohol intake: former Patient Tobacco Use Status: Former Tobacco user Review of Systems Const All systems reviewed & are unremarkable except as noted in HPI and below Physical Exam Vital Signs: Last Vital Signs Pulse 61 05/25/24 14:00 BP 114/60 05/25/24 14:00 Pulse Ox 95 05/25/24 14:00 Oxygen Delivery Method Room Air 05/25/24 14:00 BMI result Body Mass Index 32.9 Const General: comfortable and no acute distress Orientation/consciousness: patient oriented x3 HEENT Head: Yes normocephalic Mouth: Normal oral and palatal mucosa present Eyes EOM: EOMs intact bilaterally Neck Neck: Yes supple Resp Auscultation: clear to auscultation bilaterally Cardio Jugular venous distension: no JVD Rate: regular rate GI Palpation (GI): Soft to palpation Auscultation: normal bowel sounds General: Yes no CVA tenderness Back/Spine/Pelvis Back: no CVA tenderness Skin General skin exam: no rashes or lesions noted Neuro General: patient oriented x3 and moves all extremities Extrem General: Yes no pedal edema Results Reviewed Nephrology Results: Hgb 15.8 g/dl (14.0-18.0) 05/18/24 WBC 5.3 X10*3/uL (4.8-10.8) 05/18/24 Plt Count 130 X10*3/uL (160-400) L 05/18/24 Sodium 141 mmol/L (135-145) 05/18/24 Potassium 4.1 mmol/L (3.3-5.1) 05/18/24 Chloride 101 mmol/L (96-108) 05/18/24 Carbon Dioxide 35 mmol/L (22-29) H 05/18/24 BUN 44 mg/dL (9-16) H 05/18/24 Creatinine 2.06 mg/dL (0.5-1.4) H 05/18/24 Calcium 9.0 mg/dL (8.4-10.2) 05/18/24 Phosphorus 3.5 mg/dL (2.7-4.5) 05/18/24 PTH Intact 146.6 pg/mL (8.7-77.1) H 05/18/24 Assessment & Plan Assessment & Plan (1) CKD (chronic kidney disease) stage 3, GFR 30-59 ml/min: Code(s): N18.30 - Chronic kidney disease, stage 3 unspecified Category: Medical Qualifiers: Chronic kidney disease stage 3 subtype: stage 3b (GFR 30-44) Qualified Code(s): N18.32 - Chronic kidney disease, stage 3b (2) Hypertension: Code(s): I10 - Essential (primary) hypertension Category: Medical Qualifiers: Hypertension type: primary hypertension Qualified Code(s): I10 - Essential (primary) hypertension Plan Khoa is an 84 year old male with PMH significant for hypertension, dyslipidemia, left parietal stroke 2010, diabetes mellitus type 2, CAD s/p CABG x 2, 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 His renal functions are pretty stable. His last serum creatinine is close to baseline. Electrolytes are acceptable. Volume status is optimal on current dose of diuretics. He is on Farxiga 2.5 mg once daily . He follows up with his auto phone installer Dr. Saloni Coker. He is on Entresto as well. I did not make any other medications today. All questions answered. Blood work ordered Orders: Orders Complete Blood Count Auto Diff 4 Months I10 - Essential (primary) hypertension, N18.32 - Chronic kidney disease, stage 3b Blood Urea Nitrogen 4 Months I10 - Essential (primary) hypertension, N18.32 - Chronic kidney disease, stage 3b Electrolytes 4 Months I10 - Essential (primary) hypertension, N18.32 - Chronic kidney disease, stage 3b Calcium 4 Months I10 - Essential (primary) hypertension, N18.32 - Chronic kidney disease, stage 3b Creatinine 4 Months I10 - Essential (primary) hypertension, N18.32 - Chronic kidney disease, stage 3b Parathyroid Hormone Intact 4 Months I10 - Essential (primary) hypertension, N18.32 - Chronic kidney disease, stage 3b Vitamin D 25-OH Total 4 Months I10 - Essential (primary) hypertension, N18.32 - Chronic kidney disease, stage 3b Coding Level of Care Code Est Pt Level 4 (78193) Diagnoses Stage 3b chronic kidney disease N18.32 Chronic kidney disease stage 3 subtype: stage 3b (GFR 30-44) Primary hypertension I10 Hypertension type: primary hypertension
[2024-05-25 14:00] VITALS: BP 114/60; PULSE 61; O2SAT 95; BMI 32.9
--- OUTSIDE RECORDS SUMMARY | 2024-05-25 17:00 | XMS_ITS | Clinical Summary ---
Author Organization [facility] Address [address] [place] [address] Care Team Providers Care Astrobiologist Name Role Phone Unavailable Primary Care Provider [...] Vaccines (1 of 2) 1990 RSV Immunization Adult Patie nts (1 - 1-dose 75+ series) 2015 Cholesterol [...] age to complete this topic Meningococcal B Vaccine Aged Out No l onger eligible based on patient's age to complete this topic RSV Immunization Patients Un best 20 months Aged Out No longer eligible b ased on patient's age to complete this topic Varicella Vaccines Aged Out No longer eligible based on patient's age to complete this topic
--- OUTSIDE RECORDS SUMMARY | 2024-05-25 17:00 | XMS_ITS | Clinical Summary ---
Author Organization [facility] Address [address] [facility] [address] [place] [address] Phone Care Team Providers Care Box Chipper Name Role Phone Abdirahman Tineo MD Primary [...] Diabetes: Visual Foot Exam 11/30/2021 Influenza Vaccine (Season Ended) 2024 12/07/2021 Pneumococcal Vaccine: 65+ Years Completed 11/22/2017, 11/22/2017, 09/16/2015 Hepatitis B Vaccine Aged Out No longe r eligible based on patient's age to complete this topic Insurance [facility] Member Subscriber Plan / Payer (Ef fective 2021-Present) Name:Khoa Milner Relation to Subscriber:Self Name:MilnerKhoa higgins Payer ID:Not on file Type:Not on file Address: [place] [phone] Care Teams Box Chipper Relationship Specialty Start Date End Date Abdirahman Tineo MD PCP - General 02/28/20
--- OUTSIDE RECORDS SUMMARY | 2024-05-25 17:00 | XMS_ITS | Data Portability ---
Author Organization [facility] Address [address] [place] [address] Assessment No assessment recorded. Plan of Treatment Reminders Order Date Submit Date Provider Last Modified By Organization Details Last Modified Time Details Appointments None record ed. Lab None record ed. Referral None record ed. Procedures None record ed. Surgeries None record ed. Imaging None record ed. Medication Orders None record ed. Patient TargetsNo targets recorded. Patient InstructionsNo instructions recorded. Reason for Referral None Reported. Medical Equipment None Reported. Medications Name Sig Start Date Stop Date Status Note LastModified by Organization Details LastModified Time carvedilol 6.25 mg tablet active Not Available Not Available No t Available labetalol 200 mg tablet active Not Available Not Available Not Available lovastatin 40 mg tablet active Not Available Not Available Not Available desoximetasone 0.05 % topical gel active Not Available Not Available Not Available clopidogrel 75 mg tablet active Not Available Not Available No t Available metformin 1,000 mg tablet active Not Available Not Available No t Available Proventil HFA 90 mcg/actuation aerosol inhaler active Not Available Not Availa ble Not Available lisinopril 40 mg tablet active Not Available Not Available Not Available Lantus Solostar U-100 Insulin 100 unit/mL (3 mL) subcutaneous pen active Not Available Not Available Not Available BD Ultra-Fine Yoli Pen Needle 32 gauge x active Not Available Not Avail able Not Available Fluad 2016- 65yr up(PF)45 mcg(15 mcgx3)/0.5 mL intramuscular syringe active Not Available Not Available Not Available Vitals None Recorded Social History None recorded. Functional Status None recorded. Mental Status None recorded. Family History Nothing Reported. Medical History No medical history recorded. Past Encounters Encounter ID Performer Location Encounter Start Date Encounter Closed Date Diagnosis/Indication Diagnosis SNOMED-CT Code Diagnosis ICD10 Code Diagnosis Note [id number] [address] [address] 08/08/2017 15:07:56 08/08/2017 15:08:05 Health Concerns Section Related Observation LastModified by Organization Detai ls LastModified Time None Recorded Concern Status LastModified by Organization Details LastModified Time None Recorded Advance Directives Directive None Recorded Payers Encounter Date Sequence Insurance Name Policy Number Policy Guillory Covered Member ID Guillory Member ID Guarantor Name 08/06/2017 1 [facility] [id number] Khoa Milner [id number] Khoa Milner
== END 2024-05-25 14:22 | disposition home or self-care (01) ==
LOC: HO.HKAS 13:53
PROVIDERS: PCP Internal Medicine; Visit Provider Internal Medicine Nephrology
DX: N18.32 Chronic kidney disease, stage 3b (principal); I10 Essential (primary) hypertension
CPT/HCPCS: 99214

== ENCOUNTER → 2024-05-25 13:52 | Outpatient (BNVA) | payer OTHER, SELFPAY | PROVIDERS: PCP Internal Medicine; Visit Provider Internal Medicine Nephrology | DX: I12.9 Hypertensive chronic kidney disease with stage 1 through stage 4 chronic kidney disease, or unspecified chronic kidney disease (principal); N18.32 Chronic kidney disease, stage 3b; I25.5 Ischemic cardiomyopathy | CPT/HCPCS: 99212 ==

== ENCOUNTER 2024-09-30 09:00 | Outpatient (REF) | payer MEDICARE, SELFPAY ==
--- OUTSIDE RECORDS SUMMARY | 2024-09-30 09:19 | XMS_ITS | Clinical Summary ---
Author Organization [facility] Address [address] [phone] Phone Care Team Providers Care Electromatic Typist Name Role Phone Nahed Wheat MD Primary Care Provider [phone] Social History Tobacco Use Types Packs/Day Years Used Date Smoking Tobacco: Never Assessed Education Answer Date Recorded Are you interested in more education? Not on jose e 08/01/2023 Are you concerned about learning? Not on file 08/01/2023 No 08/01/2023 No 08/01/2023 Digital Access Answer Date Recorded No 08/01/2023 No 08/01/2023 Reliable internet access at home? Not on file 08/01/2023 Device with a working camera? Not on file Sex and Gender Information Value Date Recorded Sex Assigned at Not on file Legal Sex Male 8:25 PM EDT Gender Identity Not on file Sexual Orientation Not on file Plan of Treatment Not on file Medical Devices Not on file Insurance [employer] POS PPO REPLACEMENT [employer] [place] POS PPO REPLACEMENT MEDICARE POS PPO REPLACEMENT MEDICARE POS PPO REPLACEMENT MEDICARE POS PPO REPLACEMENT [employer] [place] [employer] PPO REPLACEMENT Care Teams Electromatic Typist Relationship Specialty Start Date End Date Nahed Wheat MD [address] [place] [id number] PCP - General Family Medicine 08/01/23 Additional Source Comments The information contained in this document represents components of the legal health record. It is not the complete legal health record.[facility]
--- OUTSIDE RECORDS SUMMARY | 2024-09-30 09:19 | XMS_ITS | Clinical Summary ---
Author Organization [facility] Address [address] [facility] [address] [place] [address] Phone Care Team Providers Care Thread Cutter Name Role Phone Abdirahman Tineo MD Primary [...] coronary artery bypass graft 10/04/2021 12/13/2021 Immunizations Immunization Administration Dates Next Due Influenza, Unspecified 12/07/2021 [...] Visual Foot Exam 11/30/2021 Influenza Vaccine (#1) 2024 12/07/2021 Pneumococcal Vaccine: 50+ Years Completed 11/22/2017, 11/22/2017, 09/16/2015 Pneumococcal Vaccine: Peds ( 0 to 5 Years) and At-Risk Patients (6 to 49 Years) Discontinued 11/22/2017, 11/22/2017, 09/16/2015 Hepatitis B Vaccine Aged Out No longe r eligible based on patient's age to complete this topic [place] [facility] [place] [phone] ([place]) [address] [place] [address] [facility] Care Teams Thread Cutter Relationship Specialty Start Date End Date Abdirahman Tineo MD PCP - General 02/28/20
--- OUTSIDE RECORDS SUMMARY | 2024-09-30 09:19 | XMS_ITS | Clinical Summary ---
Author Organization [facility] Address [address] [place] [address] Care Team Providers Care Ferry Boat Captain Name Role Phone Unavailable Primary Care Provider [...] series) 2015 Cholesterol Screening (Lipid Panel) 01/20/2022 Falls Risk Assessment 01/20/2022 Social Influencers of Health Screening 01/20/2022 COVID-19 Vaccine (1 - 2023-2 5 season) 2023 Depression Screening 02/18/2024 Influenza Vaccine (#1) 2024 HIB Vaccines Aged Out No longer eligi [...]
[2024-09-30 10:03] LABS: MANUAL DIFF FLAG NO
[2024-09-30 10:11] LABS: Hematocrit 47.1 % (42.0-52.0); Hemoglobin 15.0 g/dl (14.0-18.0); Imm Gran Abs Auto 0.03 X10*3/uL (0.00-0.03); Imm Gran Pct Auto 0.4 % (0.0-0.4); Lymphocytes Absolute Auto 0.8 X10*3/uL (1.2-4.9); Mean Corpuscular HGB Conc 31.8 g/dl (31.0-36.0); Mean Corpuscular Hemoglobin 29.5 pg (27.0-33.0); Mean Corpuscular Volume 92.5 fL (80.0-98.0); NRBC Abs Auto 0.000 X10*3/uL (0.0-0.012); NRBC Pct Auto 0.0 /100WBC (0.0-0.2); Platelet Count 122 X10*3/uL (160-400); Red Blood Count 5.09 X10*6/uL (4.60-5.80); White Blood Count 7.4 X10*3/uL (4.8-10.8)
[2024-09-30 10:26] LABS: Anion Gap 11 (12-20); Blood Urea Nitrogen 36 mg/dL (9-16); Calcium 8.8 mg/dL (8.4-10.2); Carbon Dioxide 34 mmol/L (22-29); Chloride 99 mmol/L (96-108); Estimated Glomerular Filt Rate 33; Potassium 4.4 mmol/L (3.3-5.1); Sodium 140 mmol/L (135-145)
[2024-09-30 10:52] LABS: Parathyroid Hormone Intact 112.1 pg/mL (8.7-77.1)
== END 2024-09-30 09:01 | disposition home or self-care (01) ==
LOC: HO.HMGCLDS 09:00
PROVIDERS: PCP Internal Medicine; Visit Provider Internal Medicine Nephrology
DX: I12.9 Hypertensive chronic kidney disease with stage 1 through stage 4 chronic kidney disease, or unspecified chronic kidney disease (principal); N18.32 Chronic kidney disease, stage 3b
CPT/HCPCS: 36415; 80051; 82306; 82310; 82565; 83970; 84520; 85025

== ENCOUNTER 2024-10-07 13:16 | Outpatient (AMB) | payer MEDICARE, SELFPAY ==
--- OUTSIDE RECORDS SUMMARY | 2024-10-07 13:26 | XMS_ITS | Clinical Summary ---
Author Organization [facility] Address [address] [place] [address] Care Team Providers Care National Flatbed Truck Driver Name Role Phone Unavailable Primary Care Provider [...]
--- OUTSIDE RECORDS SUMMARY | 2024-10-07 13:26 | XMS_ITS | Clinical Summary ---
Author Organization [facility] Address [address] [facility] [address] [place] [address] Phone Care Team Providers Care Farmworkers Name Role Phone Abdirahman Tineo MD Primary [...] patient's age to complete this topic Insurance [facility] [place] [phone] ([place]) [address] [place] [address] [facility] Care Teams Farmworkers Relationship Specialty Start Date End Date Abdirahman Tineo MD PCP - General 02/28/20
--- OUTSIDE RECORDS SUMMARY | 2024-10-07 13:26 | XMS_ITS | Clinical Summary ---
Author Organization [facility] Address [address] [phone] Phone Care Team Providers Care Journeyman Tool And Die Maker Name Role Phone Nahed Wheat MD Primary Care Provider Social History Tobacco Use Types Packs/Day Years [...] [place] [employer] [place] PPO REPLACEMENT Care Teams Journeyman Tool And Die Maker Relationship Specialty Start Date End Date Nahed Wheat MD [address] [place] [phone] PCP - General Family Medicine 08/01/23 Additional Source Comments The information contained in this document represents components of the legal health record. It is not the complete legal health record.[facility]
--- NOTE | 2024-10-07 13:33 | HO.NEPHOV ---
Vital Signs 10/07/24 13:34 Height 6 ft Weight 236 lb 6 oz BMI 32.1 BP 128/64 Blood Pressure Location Lt brachial Position Sitting Pulse 63 Pulse Source Pulse Oximeter Pulse Oximetry (%) 93 Oxygen Delivery Method Room Air Intake Visit Reasons: 4mon follow-up w/labs-LVM Laborer Airport Maintenance Required: No Accompanied by: Self / Same As Patient Allergies iodixanol Allergy (Verified 10/07/24 13:34) Unknown lorazepam Allergy (Verified 10/07/24 13:34) Unknown morphine Allergy (Verified 10/07/24 13:34) Unknown HPI Comments Details: Khoa was seen in follow-up of his chronic kidney disease. He has H/O heart failure with reduced ejection fraction in the past along with low-flow state from aortic stenosis causing Migel needing dialysis. His renal functions had recovered and is stable. He underwent TAVR. He does not have any weight gain, shortness of breath, edema, paroxysmal nocturnal dyspnea, orthopnea or syncope. He had a recent ECHO which showed mildly dilated left ventricle with normal LV thickness.Bioprosthetic valve in the aortic position TAVR .Mean gradient is 10 mmHg. Right ventricular systolic function is reduced. A pacer/ICD wire is seen in the right ventricle. His recent serum creatinine is close to baseline. His blood sugars are well controlled. He avoids nonsteroidal anti-inflammatory medications. He has not had any new medications lately. He weighs himself every day. He is followed up closely by his composite science teacher Dr. Coker. 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) Social History Alcohol intake: former Patient Tobacco Use Status: Former Tobacco user Review of Systems Const All systems reviewed & are unremarkable except as noted in HPI and below Physical Exam Vital Signs: Last Vital Signs Pulse 63 10/07/24 13:34 BP 128/64 10/07/24 13:34 Pulse Ox 93 10/07/24 13:34 Oxygen Delivery Method Room Air 10/07/24 13:34 BMI result Body Mass Index 32.1 Const General: comfortable and no acute distress Orientation/consciousness: patient oriented x3 HEENT Head: Yes normocephalic Mouth: Normal oral and palatal mucosa present Eyes EOM: EOMs intact bilaterally Neck Neck: Yes supple Resp Auscultation: clear to auscultation bilaterally Cardio Jugular venous distension: no JVD Rate: regular rate GI Palpation (GI): Soft to palpation Auscultation: normal bowel sounds General: Yes no CVA tenderness Back/Spine/Pelvis Back: no CVA tenderness Skin General skin exam: no rashes or lesions noted Neuro General: patient oriented x3 and moves all extremities Extrem General: Yes no pedal edema Results Reviewed Nephrology Results: Hgb, (14.0-18.0) 15.0 g/dl 09/30/24 WBC, (4.8-10.8) 7.4 X10*3/uL 09/30/24 Plt Count, (160-400) 122 X10*3/uL L 09/30/24 Sodium, (135-145) 140 mmol/L 09/30/24 Potassium, (3.3-5.1) 4.4 mmol/L 09/30/24 Chloride, (96-108) 99 mmol/L 09/30/24 Carbon Dioxide, (22-29) 34 mmol/L H 09/30/24 BUN, (9-16) 36 mg/dL H 09/30/24 Creatinine, (0.5-1.4) 1.97 mg/dL H 09/30/24 Calcium, (8.4-10.2) 8.8 mg/dL 09/30/24 Phosphorus, (2.7-4.5) 3.5 mg/dL 05/18/24 PTH Intact, (8.7-77.1) 112.1 pg/mL H 09/30/24 Assessment & Plan Assessment & Plan (1) CKD (chronic kidney disease) stage 3, GFR 30-59 ml/min: Code(s): N18.30 - Chronic kidney disease, stage 3 unspecified Category: Medical Qualifiers: Chronic kidney disease stage 3 subtype: stage 3b (GFR 30-44) Qualified Code(s): N18.32 - Chronic kidney disease, stage 3b (2) Hypertension: Code(s): I10 - Essential (primary) hypertension Category: Medical Qualifiers: Hypertension type: primary hypertension Qualified Code(s): I10 - Essential (primary) hypertension Plan Khoa is an 84 year old male with PMH significant for hypertension, dyslipidemia, left parietal stroke 2010, diabetes mellitus type 2, CAD s/p CABG x 2, 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 His last serum creatinine is close to baseline. Electrolytes are acceptable. Volume status is optimal on current dose of diuretics. He is on Farxiga 2.5 mg once daily . He follows up with his composite science teacher Dr. Saloni Coker. I did not make any other medications today. All questions answered. F/U Blood work ordered Orders: Orders Electrolytes 3 Months I10 - Essential (primary) hypertension, N18.32 - Chronic kidney disease, stage 3b Blood Urea Nitrogen 3 Months I10 - Essential (primary) hypertension, N18.32 - Chronic kidney disease, stage 3b Creatinine 3 Months I10 - Essential (primary) hypertension, N18.32 - Chronic kidney disease, stage 3b Vitamin D 25-OH Total 3 Months I10 - Essential (primary) hypertension, N18.32 - Chronic kidney disease, stage 3b Coding Level of Care Code Est Pt Level 4 (12664) Diagnoses Stage 3b chronic kidney disease N18.32 Chronic kidney disease stage 3 subtype: stage 3b (GFR 30-44) Primary hypertension I10 Hypertension type: primary hypertension
[2024-10-07 13:34] VITALS: BP 128/64; PULSE 63; O2SAT 93; BMI 32.1
== END 2024-10-07 13:54 | disposition home or self-care (01) ==
LOC: HO.HKAS 13:16
PROVIDERS: PCP Internal Medicine; Visit Provider Internal Medicine Nephrology
DX: N18.32 Chronic kidney disease, stage 3b (principal); I10 Essential (primary) hypertension
CPT/HCPCS: 99214

== ENCOUNTER → 2024-10-07 13:16 | Outpatient (BNVA) | payer MEDICARE, SELFPAY | PROVIDERS: PCP Internal Medicine; Visit Provider Internal Medicine Nephrology | DX: N18.32 Chronic kidney disease, stage 3b (principal); I10 Essential (primary) hypertension | CPT/HCPCS: 99212 ==

== ENCOUNTER 2025-01-11 09:08 | Outpatient (REF) | payer MEDICARE, SELFPAY ==
--- OUTSIDE RECORDS SUMMARY | 2025-01-11 10:02 | XMS_ITS | Clinical Summary ---
Author Organization [facility] Address [address] [facility] [address] [place] [address] Phone Care Team Providers Care Product/Industry Consultant Name Role Phone Abdirahman Tineo MD Primary [...] Years Used Date Smoking Tobacco: Former Cigarettes 0 Q uit: 11/07/1969 Smokeless Tobacco: Never Tobacco [...] patient's age to complete this [place] [phone] [facility] Care Teams Product/Industry Consultant Relationship Specialty Start Date End Date Abdirahman Tineo MD PCP - General 02/28/20
--- OUTSIDE RECORDS SUMMARY | 2025-01-11 10:02 | XMS_ITS | Clinical Summary ---
Author Organization [facility] Address [address] [phone] Phone Care Team Providers Care Foiling Machine Operator Name Role Phone Nahed Wheat MD Primary [...] [place] [employer] POS PPO REPLACEMENT Care Teams Foiling Machine Operator Relationship Specialty Start Date End Date Nahed Wheat MD [address] [place] [id number] PCP - General Family Medicine 08/01/23 Additional Source Comments The information contained in this document represents components of the legal health record. It is not the complete legal health record.[facility]
--- OUTSIDE RECORDS SUMMARY | 2025-01-11 10:02 | XMS_ITS | Clinical Summary ---
Author Organization [facility] [[email or web address]] Address [address] [place] [address] Care Team Providers Care Assembler Body Name Role Phone Unavailable Primary Care Provider Unavailabl e Social History Tobacco Use Types Packs/Day Years Used Date Smoking Tobacco: Never Assessed Sex and Gender Information Value Date Recorded Sex Assigned at Not on file Legal Sex Male 1:58 AM EST Gender Identity Not on file Sexual Orientation Not on file Plan of Treatment Upcoming Encounters Date Type Department Care Team ([facility] st Contact Info) Description 08/09/2025 1:20 PM EDT Office Visit Gastroenterology - [address] [facility] [address] [place] [id number] Paloma Clements NP [address] [facility] [address] [place] [address] Health Maintenance Due Date Last Done Comments DTaP,Tdap,and Td Vaccines (1 - Tdap) 1959 Pneumococcal Vaccine: 50+ Ye ars (1 of 1 - PCV) 1990 Zoster Vaccines (1 of 2) 1990 RSV Immunization Adult Patie nts (1 - 1-dose 75+ series) 2015 Cholesterol Screening (Lipid Panel) 01/20/2022 Falls Risk Assessment 01/20/2022 Social Influencers of Health Screening 01/20/2022 Depression Screening 02/18/2024 COVID-19 Vaccine ( - 2024-2 6 season) 2024 Influenza Vaccine (#1) 2024 HIB Vaccines Aged [...] patient's age to complete this topic Insurance [facility] [id number]
[2025-01-11 11:01] LABS: Anion Gap 13 (12-20); Blood Urea Nitrogen 40 mg/dL (9-16); Carbon Dioxide 34 mmol/L (22-29); Chloride 99 mmol/L (96-108); Estimated Glomerular Filt Rate 29; Potassium 4.4 mmol/L (3.3-5.1); Sodium 142 mmol/L (135-145)
== END 2025-01-11 09:09 | disposition home or self-care (01) ==
LOC: HO.HMGCLDS 09:08
PROVIDERS: PCP Internal Medicine; Visit Provider Internal Medicine Nephrology
DX: I12.9 Hypertensive chronic kidney disease with stage 1 through stage 4 chronic kidney disease, or unspecified chronic kidney disease (principal); N18.32 Chronic kidney disease, stage 3b
CPT/HCPCS: 36415; 80051; 82306; 82565; 84520

== ENCOUNTER 2025-01-20 13:54 | Outpatient (AMB) | payer MEDICARE, SELFPAY ==
[2025-01-20 14:23] VITALS: BP 110/60; PULSE 65; O2SAT 95; BMI 33.2
--- NOTE | 2025-01-20 14:23 | HO.NEPHOV ---
Vital Signs 01/20/25 14:23 Height 6 ft Weight 245 lb BMI 33.2 BP 110/60 Blood Pressure Location Lt brachial Position Sitting Pulse 65 Pulse Source Pulse Oximeter Pulse Oximetry (%) 95 Oxygen Delivery Method Room Air Intake Visit Reasons: 3mon f/u w/labs-Conf Inventory Transcriber Required: No Accompanied by: Self / Same As Patient Allergies iodixanol Allergy (Verified 01/20/25 14:23) Unknown lorazepam Allergy (Verified 01/20/25 14:23) Unknown morphine Allergy (Verified 01/20/25 14:23) Unknown HPI Comments Details: Khoa was seen in follow-up of his chronic kidney disease. He has H/O heart failure with reduced ejection fraction in the past along with low-flow state from aortic stenosis causing Migel needing dialysis. His renal functions is stable. He underwent TAVR. He does not have any weight gain, shortness of breath, edema, paroxysmal nocturnal dyspnea, orthopnea or syncope. He had a recent ECHO which showed mildly dilated left ventricle with normal LV thickness.Bioprosthetic valve in the aortic position TAVR .Mean gradient is 10 mmHg. Right ventricular systolic function is reduced. A pacer/ICD wire is seen in the right ventricle. His recent serum creatinine is close to baseline. His blood sugars are well controlled. He avoids nonsteroidal anti-inflammatory medications. He has not had any new medications lately. He weighs himself every day. He is followed up closely by his laboratory director Dr. Coker. 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) Social History Alcohol intake: former Patient Tobacco Use Status: Former Tobacco user Review of Systems Const All systems reviewed & are unremarkable except as noted in HPI and below Physical Exam Vital Signs: Last Vital Signs Pulse 65 01/20/25 14:23 BP 110/60 01/20/25 14:23 Pulse Ox 95 01/20/25 14:23 Oxygen Delivery Method Room Air 01/20/25 14:23 BMI result Body Mass Index 33.2 Const General: comfortable and no acute distress Orientation/consciousness: patient oriented x3 HEENT Head: Yes normocephalic Mouth: Normal oral and palatal mucosa present Eyes EOM: EOMs intact bilaterally Neck Neck: Yes supple Resp Auscultation: clear to auscultation bilaterally Cardio Jugular venous distension: no JVD Rate: regular rate GI Palpation (GI): Soft to palpation Auscultation: normal bowel sounds General: Yes no CVA tenderness Back/Spine/Pelvis Back: no CVA tenderness Skin General skin exam: no rashes or lesions noted Neuro General: patient oriented x3 and moves all extremities Extrem General: Yes no pedal edema Results Reviewed Nephrology Results: Sodium, (135-145) 142 mmol/L 01/11/25 Potassium, (3.3-5.1) 4.4 mmol/L 01/11/25 Chloride, (96-108) 99 mmol/L 01/11/25 Carbon Dioxide, (22-29) 34 mmol/L H 01/11/25 BUN, (9-16) 40 mg/dL H 01/11/25 Creatinine, (0.5-1.4) 2.19 mg/dL H 01/11/25 Calcium, (8.4-10.2) 8.8 mg/dL 09/30/24 Phosphorus, (2.7-4.5) 3.5 mg/dL 05/18/24 PTH Intact, (8.7-77.1) 112.1 pg/mL H 09/30/24 Assessment & Plan Assessment & Plan (1) Hypertension: Code(s): I10 - Essential (primary) hypertension Category: Medical Qualifiers: Hypertension type: primary hypertension Qualified Code(s): I10 - Essential (primary) hypertension (2) CKD (chronic kidney disease) stage 3, GFR 30-59 ml/min: Code(s): N18.30 - Chronic kidney disease, stage 3 unspecified Category: Medical Qualifiers: Chronic kidney disease stage 3 subtype: stage 3b (GFR 30-44) Qualified Code(s): N18.32 - Chronic kidney disease, stage 3b Plan Khoa is an 84 year old male with PMH significant for hypertension, dyslipidemia, left parietal stroke 2010, diabetes mellitus type 2, CAD s/p CABG x 2, 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 His last serum creatinine is close to baseline. Electrolytes are acceptable. Volume status is optimal on current dose of diuretics. He is on Farxiga 2.5 mg once daily . He follows up with his laboratory director Dr. Saloni Coker. I did not make any other medications today. All questions answered. F/U Blood work ordered Orders: Orders Electrolytes 4 Months I10 - Essential (primary) hypertension, N18.32 - Chronic kidney disease, stage 3b Parathyroid Hormone Intact 4 Months I10 - Essential (primary) hypertension, N18.32 - Chronic kidney disease, stage 3b Complete Blood Count Auto Diff 4 Months I10 - Essential (primary) hypertension, N18.32 - Chronic kidney disease, stage 3b Creatinine 4 Months I10 - Essential (primary) hypertension, N18.32 - Chronic kidney disease, stage 3b Blood Urea Nitrogen 4 Months I10 - Essential (primary) hypertension, N18.32 - Chronic kidney disease, stage 3b Vitamin D 25-OH Total 4 Months I10 - Essential (primary) hypertension, N18.32 - Chronic kidney disease, stage 3b Coding Level of Care Code Est Pt Level 4 (33965) Diagnoses Primary hypertension I10 Hypertension type: primary hypertension Stage 3b chronic kidney disease N18.32 Chronic kidney disease stage 3 subtype: stage 3b (GFR 30-44)
== END 2025-01-20 14:39 | disposition home or self-care (01) ==
PROVIDERS: PCP Internal Medicine; Visit Provider Internal Medicine Nephrology
DX: I10 Essential (primary) hypertension (principal); N18.32 Chronic kidney disease, stage 3b
CPT/HCPCS: 99214

== ENCOUNTER → 2025-01-20 13:54 | Outpatient (BNVA) | payer MEDICARE, SELFPAY | PROVIDERS: PCP Internal Medicine; Visit Provider Internal Medicine Nephrology | DX: I12.9 Hypertensive chronic kidney disease with stage 1 through stage 4 chronic kidney disease, or unspecified chronic kidney disease (principal); N18.32 Chronic kidney disease, stage 3b; E11.22 Type 2 diabetes mellitus with diabetic chronic kidney disease; Z95.1 Presence of aortocoronary bypass graft; Z79.84 Long term (current) use of oral hypoglycemic drugs; Z86.73 Personal history of transient ischemic attack (TIA), and cerebral infarction without residual deficits; Z87.891 Personal history of nicotine dependence | CPT/HCPCS: 99212 ==